=== PATIENT | male | born 1965 | race Caucasian/White ===

== ENCOUNTER → 2016-11-08 | Outpatient (CLI) | payer BC ==
--- NOTE | 2016-11-08 14:08 | Diagnostic Imaging Report ---
EXAMINATION: AP and lateral views of the forearm. INDICATION: Injury with mid forearm pain. FINDINGS: No fracture, dislocation, or radiopaque foreign body. The proximal and distal joints appear grossly unremarkable. IMPRESSION: Unremarkable exam. Dictated by: Dictated on workstation # [id number]
== END ==
LOC: RAD 10:34
PROVIDERS: ATTEND Family Medicine
DX: S59.911A Unspecified injury of right forearm, initial encounter (principal); W22.8XXA Striking against or struck by other objects, initial encounter; Y99.8 Other external cause status
CPT/HCPCS: 73090

== ENCOUNTER → 2021-05-02 | Outpatient (CLI) | payer BC | LOC: CARD 08:30 | PROVIDERS: ATTEND Family Medicine | DX: I35.0 Nonrheumatic aortic (valve) stenosis (principal); I51.7 Cardiomegaly | CPT/HCPCS: 93306 ==